=== PATIENT | male | born 1940 | race Caucasian/White ===

== ENCOUNTER 2019-03-23 06:45 | Day surgery (SDC) | payer BC, MEDICARE ==
[2019-03-23] MEDS ORDERED: Propofol 200 MG/20 ML SDV ONE (07:33)
[2019-03-23] MEDS ORDERED: fentaNYL 100 MCG/2 ML SDV ONE (07:34)
[2019-03-23] MEDS ORDERED: Midazolam 1 MG/ML 2 ML SDV ONE (07:34)
[2019-03-23] MEDS ORDERED: Sodium Chloride 0.9% 1,000 ML IV SCH (07:45)
--- NOTE | 2019-03-23 13:22 | OR ---
DATE OF PROCEDURE: 03/23/2019 SURGEON: Jimmie Mcgraw MD PROCEDURE: Colonoscopy. FINDINGS: 1. Sigmoid colon polyp, approximately 5 mm, completely removed using snare. 2. Diverticulosis, mild, mostly limited to sigmoid colon. COMPLICATIONS: None. SPEEDBOAT OPERATOR: None. ANESTHETIC: MAC. RISKS: Risks, benefits, alternatives, and limitations including but not limited to, infection, bleeding, and perforation were explained to the patient, wished to proceed. PREOPERATIVE DIAGNOSIS: Screening colonoscopy. POSTOPERATIVE DIAGNOSIS: Screening colonoscopy. PROCEDURE IN DETAIL: The patient was placed in left lateral decubitus position. Digital rectal exam was performed without abnormality. The scope was introduced and advanced atraumatically to the ileocecal valve. The scope was brought back through the ascending, transverse, descending colon, and retroflexed. No evidence of old or new blood. No masses. No polyps. Advanced to the ileocecal valve. Scope was brought back through the colon. The patient did have diverticulosis, which would be described as mild and limited to sigmoid colon, without evidence of diverticulitis or bleeding. The sigmoid colon polyp was approximately 5 mm, completely removed using snare. No abnormalities noted after removal. No abnormalities on retroflexion. The patient tolerated the procedure well. Jimmie Mcgraw MD /[id number]
== END 2019-03-23 09:34 | disposition home or self-care (01) ==
LOC: JP.SDS 06:45
PROVIDERS: ATTEND Surgery
DX: Z12.11 Encounter for screening for malignant neoplasm of colon (principal); K63.5 Polyp of colon; K57.30 Diverticulosis of large intestine without perforation or abscess without bleeding; I25.10 Atherosclerotic heart disease of native coronary artery without angina pectoris; I12.9 Hypertensive chronic kidney disease with stage 1 through stage 4 chronic kidney disease, or unspecified chronic kidney disease; N18.9 Chronic kidney disease, unspecified; K21.9 Gastro-esophageal reflux disease without esophagitis; E78.00 Pure hypercholesterolemia, unspecified
CPT/HCPCS: 45385; 88305; J2250; J2704; J3010; J7030

== ENCOUNTER 2021-12-31 11:21 | Emergency (ER) | payer MEDICARE ==
[2021-12-31] MEDS ORDERED: Sodium Chloride 0.9% 1,000 ML IV SCH ×2 (12:15→13:45)
[2021-12-31] MEDS ORDERED: Cefepime 2 GM in Sodium Chloride 0.9% 50 ML IV ONE (14:18)
[2021-12-31] MEDS ORDERED: Acetaminophen 325 MG Tab PO ONE (14:53)
[2021-12-31] MEDS ORDERED: Ondansetron 4 MG/2 ML SDV IVPUSH ONE (15:47)
[2021-12-31] MEDS ORDERED: Ampicillin/Sulbactam Na 3 GM in Sodium Chloride 0.9% 100 ML IV ONE (16:34)
== END 2021-12-31 19:00 | disposition home or self-care (01) ==
LOC: JP.ED 11:21
DX: E86.0 Dehydration (principal); D72.819 Decreased white blood cell count, unspecified; Z91.09 Other allergy status, other than to drugs and biological substances; Z79.82 Long term (current) use of aspirin; Z79.02 Long term (current) use of antithrombotics/antiplatelets
CPT/HCPCS: 36415; 71046; 71046-26; 80053; 81001; 83605; 85025; 87040; 96361; 96365; 96375; 99283; 99284-25; A9270-GY; J0692; J1447; J2405; J7030